=== PATIENT | male | born 1965 | race Caucasian/White ===

== ENCOUNTER 2017-08-29 04:22 | Inpatient (IN) | payer MEDICAID ==
[~2017-08-29] VITALS: Ht 172.7 cm; Wt 98.0 kg
[2017-08-29] MEDS ORDERED: ASPIRIN 325 MG TAB PO STA (06:07)
[2017-08-29] MEDS ORDERED: ONDANSETRON 4 MG INJ IV STA (06:27)
[2017-08-29] MEDS ORDERED: morphine 4 MG/ML VIAL IV STA (06:27)
[2017-08-29] MEDS ORDERED: NITROGLYCERIN 2% 1 GM OINT PKT TD STA (06:27)
--- NOTE | 2017-08-29 06:44 | ERD ---
ER Documentation Chief Complaint Chief Complaint substernal CP x 45 mins, choking him in the throat, hx cardiac stents HPI This a 52-year-old male with a history of cardiac stents placement 3 years ago, diabetes, high cholesterol, hypertension. The patient developed substernal chest pressure at 4 AM today with radiation to his neck and arms with tingling to his neck and arms as well. Nodes sweaty but was short of breath. Pain is moderate to severe in exactly like his prior chest pain when he had a stent placed 3 years ago at [facility]. The patient says his chest pressure is almost gone at this point. Patient does not have typical angina on a regular basis ROS All systems reviewed and are negative except as per history of present illness. Medications Home Meds No Active Prescriptions or Reported Meds Allergies Allergies: Coded Allergies: No Known Allergy (Unverified , 08/29/17) FmHx Family History: No coronary disease Physical Exam Vitals Vital Signs Date Time Temp Pulse Resp B/P Pulse Ox O2 Delivery O2 Flow Rate FiO2 08/29/17 06:40 Nasal Cannula 2 08/29/17 06:40 98.2 76 16 149/96 94 Room Air 08/29/17 04:30 97.9 93 20 174/88 97 Physical Exam Const: Well-developed, well-nourished Head: Atraumatic, normocephalic Eyes: Normal Conjunctiva, PERRLA, EOMI, normal sclera, no nystagmus ENT: Normal External Ears, Nose and Mouth, moist mucus membranes. Neck: Full range of motion. No meningismus, no lymphadenopathy. Resp: Clear to auscultation bilaterally, no wheezing, rhonchi, rales Cardio: Regular rate and rhythm, no murmurs, S1 S2 present Abd: Soft, non tender x 4, non distended. Normal bowel sounds, no guarding or rebound, no pulsitile abdominal masses or bruits Skin: No petechiae or rashes, no ecchymosis , no maculopapular rash Back: No midline or flank tenderness Ext: No cyanosis, or edema, FROM x 4, normal inspection, neurovascularly intact x 4 Neur: Awake and alert, STR 5/5 x 4, sensation intact x 4, no focal findings, cerebellum intact Psych: Normal Mood and Affect Result Diagram: 12/24/17 0605 12/24/17 0605 Results 24 hrs Laboratory Tests Test 08/29/17 06:05 08/29/17 07:40 White Blood Count 7.710^3/ul Red Blood Count 4.8710^6/ul Hemoglobin 15.6g/dl Hematocrit 44.8% Mean Corpuscular Volume 92.0fl Mean Corpuscular Hemoglobin 32.0pg Mean Corpuscular Hemoglobin Concent 34.8g/dl Red Cell Distribution Width 12.9% Platelet Count 63250^3/UL Mean Platelet Volume 9.6fl Neutrophils % 71.8% Lymphocytes % 20.9% Monocytes % 5.4% Eosinophils % 0.9% Basophils % 0.6% Nucleated Red Blood Cells % 0.0/100WBC Neutrophils # 5.510^3/ul Lymphocytes # 1.610^3/ul Monocytes # 0.410^3/ul Eosinophils # 0.110^3/ul Basophils # 0.110^3/ul Nucleated Red Blood Cells # 0.010^3/ul Sodium Level 135mmol/L Potassium Level 4.6mmol/L Chloride Level 99mmol/L Carbon Dioxide Level 22mmol/L Anion Gap 19 Blood Urea Nitrogen 11mg/dl Creatinine 0.72mg/dl Glucose Level 158mg/dl Calcium Level 9.7mg/dl Troponin I 0.015ng/ml B-Type Natriuretic Peptide 14PG/ML Prothrombin Time 11.4Sec Prothrombin Time Ratio 0.9 INR International Normalized Ratio 0.82 Activated Partial Thromboplast Time 25.1Sec Current Medications Medications (Trade) Dose Ordered Sig/Frank Route PRN Reason Start Time Stop Time Status Last Admin Dose Admin Aspirin (Aspirin) 325 mg ONCE STAT PO 08/29/17 06:07 08/29/17 06:08 DC 08/29/17 06:54 Nitroglycerin (Nitroglycerin 2% Oint) 1 inch ONCE STAT TD 08/29/17 06:27 08/29/17 06:29 DC 08/29/17 07:00 Morphine Sulfate (morphine) 4 mg ONCE STAT IV 08/29/17 06:27 08/29/17 06:29 DC 08/29/17 06:58 Ondansetron HCl (Zofran Inj) 4 mg ONCE STAT IV 08/29/17 06:27 08/29/17 06:29 DC 08/29/17 06:58 Procedures/MDM EKG: Rate/Rhythm: Normal Sinus Rhythm,NL intervals QRS, ST, QT: NORMAL PA, QRS, QT] Impression: NORMAL EKG PROCEDURE: XR Chest. CLINICAL INDICATION: Chest pain. TECHNIQUE: Single frontal view of the chest was obtained. COMPARISON: None FINDINGS: The soft tissues are generous with monitoring electrodes project across the chest. There is a deformity of the mid left clavicle which could be the result of an old fracture deformity. No acute bony fracture is identified. The heart is at transverse configuration from a suboptimal inspiration. Is upper limits of normal for size. The cardiomediastinal silhouette and hilar structures are normal. The pulmonary vasculature is normal. There is a left-sided aorta. The lungs are clear. The costophrenic angles are normal. IMPRESSION: 1. Normal chest x-ray allowing for a poor inspiratory effort. RPTAT:AAJJ Physician Ken Date Time Electronically viewed and signed by Physician Ken on 08/29/2017 07:33 JM/ CC: CORWIN CORONADO DO Patient's symptoms are concerning for cardiac cause will require inpatient workup and continuous monitoring. Further w/u for ischemia, arrhythmia, PE or dissection will be deferred to the inpatient team. Accepting Care Team: Current data and ongoing care discussed. Time: Time of admission Primary Provider: [XOXOXO] Consulting: [XOXOXO] Outstanding Data: none Departure Diagnosis: Primary Impression: Chest pain Chest pain type: precordial pain Qualified Code: R07.2 - Precordial pain Condition: Stable CASTILLO DONBrandon LADD Aug 29, 2017 06:44
[2017-08-29 06:53] LABS: BASOPHIL # 0.1 10^3/ul (0.0-0.1); BASOPHILS % 0.6 % (0.0-2.0); EOSINOPHILS # 0.1 10^3/ul (0.0-0.5); EOSINOPHILS % 0.9 % (0.0-7.0); HEMATOCRIT 44.8 % (42.0-52.0); HEMOGLOBIN 15.6 g/dl (14.0-18.0); LYMPHOCYTES # 1.6 10^3/ul (0.8-2.9); LYMPHOCYTES % 20.9 % (15.0-51.0); MEAN CORPUSCULAR HGB CONC 34.8 g/dl (32.0-37.0); MEAN PLATELET VOLUME 9.6 fl (7.4-10.4); MONOCYTE # 0.4 10^3/ul (0.3-0.9); MONOCYTES % 5.4 % (0.0-11.0); NEUTROPHIL # 5.5 10^3/ul (1.6-7.5); NEUTROPHILS % 71.8 % (39.0-77.0); PLATELET COUNT 265 10^3/UL (140-415); RED BLOOD COUNT 4.87 10^6/ul (4.70-6.10); RED CELL DISTRIBUTION WIDTH 12.9 % (11.5-14.5); WHITE BLOOD COUNT 7.7 10^3/ul (4.8-10.8)
[2017-08-29 07:17] LABS: CALCIUM 9.7 mg/dl (8.4-10.2); CREATININE 0.72 mg/dl (0.61-1.24); POTASSIUM 4.6 mmol/L (3.5-5.1)
[2017-08-29 07:30] LABS: TROPONIN-I 0.015 ng/ml (0.00-0.12)
--- NOTE | 2017-08-29 07:33 | RADRPT ---
PROCEDURE: XR Chest. CLINICAL INDICATION: Chest pain. TECHNIQUE: Single frontal view of the chest was obtained. COMPARISON: None FINDINGS: The soft tissues are generous with monitoring electrodes project across the chest. There is a defor mity of the mid left clavicle which could be the result of an old fracture deformity. No acute bony fracture is identified. The heart is at transverse configuration from a suboptimal inspiration. Is upper limits of normal for size. The cardiomediastinal silhouette and hilar structures are normal. T he pulmonary vasculature is normal. There is a left-sided aorta. The lungs are clear. The costophr enic angles are normal. IMPRESSION: 1. Normal chest x-ray allowing for a poor inspiratory effort. RPTAT:AAJJ Physician Ken Date Time Electronically viewed and signed by Physician Ken on 08/29/2017 07:33 TRES/
[2017-08-29 08:17] LABS: INR 0.82; PROTIME 11.4 Sec (11.9-14.9); PT RATIO 0.9
[2017-08-29 08:18] LABS: PARTIAL THROMBOPLASTIN TIME 25.1 Sec (25.0-35.0)
[2017-08-29] MEDS ORDERED: SOD CHLORIDE 0.9% 1,000 ML IV SCH (08:48)
[2017-08-29] MEDS ORDERED: ACETAMINOPHEN 325 MG TAB PO PRN ×2 (09:00→13:00)
[2017-08-29] MEDS ORDERED: ONDANSETRON 4 MG INJ IV PRN ×2 (09:00→13:00)
[2017-08-29 10:08] VITALS: TEMP 98.2
[2017-08-29] MEDS ORDERED: NITROGLYCERIN (SL) 0.4 MG TAB SL PRN (13:00)
[2017-08-29] MEDS ORDERED: HYDROCODONE/APAP (5/325) TAB PO PRN (13:00)
[2017-08-29] MEDS ORDERED: DOCUSATE SODIUM 100 MG CAP PO PRN (13:00)
[2017-08-29] MEDS ORDERED: ALBUTEROL/IPRATROPIUM (NEB) 3 ML AMP HHN PRN (13:00)
[2017-08-29] MEDS ORDERED: MAGNESIUM HYDROXIDE 30ML CUP PO PRN (13:00)
[2017-08-29] MEDS ORDERED: NA PHOSPHATE/BIPHOS 133 ML ENEMA PR PRN (13:00)
[2017-08-29] MEDS ORDERED: LORAZEPAM 2 MG INJ IV PRN (13:00)
[2017-08-29] MEDS: INSULIN ASPART [NOVOLOG] 3 ML PEN SC SCH ×3 (13:00→22:20)
[2017-08-29] MEDS ORDERED: hydrALAzine 20 MG INJ IV PRN (13:00)
[2017-08-29] MEDS ORDERED: NACL 0.9% 3 ML SYG IV SCH (13:00)
[2017-08-29] MEDS ORDERED: DEXTROSE 50% 50 ML SYRINGE IV PRN ×2 (13:30)
[2017-08-29] MEDS ORDERED: GLUCOSE GEL 15 GRAM TUBE BUCCAL PRN (13:30)
[2017-08-29] MEDS ORDERED: GLUCOSE GEL 15 GRAM TUBE PO PRN ×2 (13:30)
[2017-08-29] MEDS ORDERED: GLUCAGON 1 MG INJ IM PRN (13:30)
[2017-08-29] MEDS: NICOTINE (14 MG/24 HR) PATCH TRANSDERM SCH (13:48)
--- NOTE | 2017-08-29 13:48 | CONS ---
Date/Time of Note Date/Time of Note DATE: 08/29/17 TIME: 13:42 Assessment/Plan Assessment/Plan Chief Complaint/Hosp Course Chest pain syndrome rule out acute coronary syndrome History of coronary artery disease History of [place] History of PCI Hypertension currently well controlled dyslipidemia hyperglycemia consistent with diabetes Noncompliant with medication Smoker Recommendations: Patient will be placed on appropriate medical therapy including aspirin beta- william statins. Diabetic management as per internal medicine. Imdur will be added. Serial cardiac enzymes will be obtained to rule out myocardial infarction. Echo will be ordered. Importance of compliance with the medication emphasized with the patient and family. Further recommendations after the above information is available. Thank you for his referral. I will continue to follow along with you. PETE RAMEY MD [facility] Problems: Consultation Date/Type/Reason Admit Date/Time Date of Consultation: Aug 29, 2017 Type of Consultation: Cardiology Reason for Consultation Chest pain Referring Provider: URI GRUBER Hx of Present Illness Cardiology consultation Chief complaint chest discomfort throat discomfort. History of present illness: Thank you for his referral. History was obtained from the patient from discussion with his discussion with Dr. Gruber This is a pleasant 52-year-old gentleman with history of coronary artery disease status post UT a few years ago status post PCI/stent who presented to emergency room of complaint. Patient woke up this morning with severe sudden onset of chest and throat discomfort. Was pressure-like. It was moderate intensity. It lasted about 45 minutes and has resolved now. Patient is currently chest pain-free. He says that he is normally able to exercise with no rest pain or discomfort. Discussed with his . Patient has not been compliant with any of his medication. He has not been taking any of his medications including given his aspirin. He was seen recently by her primary care physician who prescribed aspirin and statin and fenofibrate and KATHERYN inhibitor. However he has not taken any of them. He continues to smoke as well. Past medical history: Coronary artery disease status post [place] status post PCI about 3 years ago. History of hypertension dyslipidemia Smoker Medication At Home none Social history patient actively smokes. He is . He works as a medical data entry clerk. Family history: Patient father also with heart attacks Review of systems he denies all except for above-mentioned Social History Smoking Status: Current every day smoker Exam/Review of Systems Vital Signs Vitals Vital Signs Date Time Temp Pulse Resp B/P Pulse Ox O2 Delivery O2 Flow Rate FiO2 08/29/17 12:27 79 14 118/78 98 Nasal Cannula 2.0 08/29/17 10:08 98.2 Exam General: no acute distress HEENT: NC/AT. pupils are equal. round. NECK: NO JVD. no stridor. CV: RRR. systolic murmur; no gallop or rubs. PULM: no wheezing or rhonchi. GI: SOFT, NT, ND, no rebound or guarding Extremity: trace B/L LE edema. no clubbing. neuro: awake and alert, OX3. Psych: calm and pleasant rectal: deferred EKG was personally reviewed: Normal sinus rhythm normal ECG Results Result Diagram: 08/29/1760408/29/17604 Results 24 hrs Laboratory Tests Test 08/29/17 06:00 08/29/17 06:05 08/29/17 07:40 Free Thyroxine 1.04 White Blood Count 7.7 Red Blood Count 4.87 Hemoglobin 15.6 Hematocrit 44.8 Mean Corpuscular Volume 92.0 Mean Corpuscular Hemoglobin 32.0 Mean Corpuscular Hemoglobin Concent 34.8 Red Cell Distribution Width 12.9 Platelet Count 265 Mean Platelet Volume 9.6 Neutrophils % 71.8 Lymphocytes % 20.9 Monocytes % 5.4 Eosinophils % 0.9 Basophils % 0.6 Nucleated Red Blood Cells % 0.0 Neutrophils # 5.5 Lymphocytes # 1.6 Monocytes # 0.4 Eosinophils # 0.1 Basophils # 0.1 Nucleated Red Blood Cells # 0.0 Sodium Level 135 Potassium Level 4.6 Chloride Level 99 Carbon Dioxide Level 22 Anion Gap 19 H Blood Urea Nitrogen 11 Creatinine 0.72 Glucose Level 158 Calcium Level 9.7 Troponin I 0.015 B-Type Natriuretic Peptide 14 Prothrombin Time 11.4 L Prothrombin Time Ratio 0.9 INR International Normalized Ratio 0.82 Activated Partial Thromboplast Time 25.1 Medications Medications Current Medications Sodium Chloride (NS) 1,000 ml @ 80 mls/hr [id number] IV Last administered on t 10:05; Admin Dose 80 MLS/HR; Start 08/29/17 at 08:48; Stop 08/29/17 at 21:17 Ondansetron HCl (Zofran Inj) 4 mg Q6H PRN IV NAUSEA AND/OR VOMITING; Start at 13:00 Acetaminophen (Tylenol Tab) 650 mg Q6H PRN PO PAIN LEVEL 1-3 OR FEVER; Start 08/29/17 at 13:00 Acetaminophen/ Hydrocodone Bitart ([place] (5/325)) 1 tab Q6H PRN PO MODERATE PAIN LEVEL 4-6; Start 08/29/17 at 13:00 Morphine Sulfate (morphine) 2 mg Q4H PRN IV SEVERE PAIN LEVEL 7-10; Start at 13:00 Docusate Sodium (Colace) 100 mg Q12H PRN PO CONSTIPATION; Start 08/29/17 at 13 :00 Magnesium Hydroxide (Milk Of Mag) 30 ml DAILY PRN PO CONSTIPATION; Start 08/29 at 13:00 Sodium Biphosphate/ Sodium Phosphate (Fleet Enema) 133 ml DAILY PRN [place] CONSTIPATION; Start 08/29/17 at 13:00 Heparin Sodium (Porcine) 5000 unit 5,000 unit Q12 SC ; Start 08/29/17 at 21:00 Sodium Chloride (1/2 NS) 1,000 ml @ 75 mls/hr [id number] IV ; Start 08/29/17 at 12:37 Lorazepam (Ativan) 0.5 mg Q6H PRN IV ANXIETY; Start 08/29/17 at 13:00 Hydralazine HCl (Apresoline) 10 mg Q6H PRN IV ELEVATED BLOOD PRESSURE; Start 08/29/17 at 13:00 Clonidine (Catapres) 0.1 mg Q6H PRN PO ELEVATED BLOOD PRESSURE; Start at 13:00 Nitroglycerin (Nitroglycerin (Sl Tab) 0.4 Mg) 1 tab Q5M PRN SL ANGINA; Start 08/29/17 at 13:00 Nicotine (Nicoderm 14 Mg/ 24hr) 1 patch DAILY@14 TRANSDERM ; Start 08/29/17 at 14:00 Diagnostic Test (Pha) (Accu-Chek) 1 ea 02 XX ; Start 08/30/17 at 02:00 Insulin Aspart (Novolog Insulin Pen) NOVOLOG *MILD* ALGORI... Q4 SC ; Start at 13:00 Miscellaneous Information 1 ea NOTE XX ; Start 08/29/17 at 13:30 Glucose (Glutose) 15 gm Q15M PRN PO DECREASED GLUCOSE; Start 08/29/17 at 13:30 Glucose (Glutose) 22.5 gm Q15M PRN PO DECREASED GLUCOSE; Start 08/29/17 at 13: 30 Dextrose (D50w Syringe) 25 ml Q15M PRN IV DECREASED GLUCOSE; Start 08/29/17 at 13:30 Dextrose (D50w Syringe) 50 ml Q15M PRN IV DECREASED GLUCOSE; Start 08/29/17 at 13:30 Glucagon (Glucagen) 1 mg Q15M PRN IM DECREASED GLUCOSE; Start 08/29/17 at 13: 30 Glucose (Glutose) 15 gm Q15M PRN BUCCAL DECREASED GLUCOSE; Start 08/29/17 at 13:30 Aspirin (Halfprin) 81 mg DAILY PO ; Start 08/30/17 at 09:00 Metoprolol Succinate (Toprol Xl) 25 mg QHS PO ; Start 08/29/17 at 21:00; Status UNV Atorvastatin Calcium (Lipitor) 40 mg QHS PO ; Start 08/29/17 at 21:00; Status UNV PETE RAMEY MD Aug 29, 2017 13:48
[2017-08-29 13:54] LABS: INR 0.85; PROTIME 11.7 Sec (11.9-14.9); PT RATIO 0.9
[2017-08-29 14:00] LABS: PARTIAL THROMBOPLASTIN TIME 25.2 Sec (25.0-35.0)
[2017-08-29 14:15] VITALS: BP 122/71; PULSE 68; RESP 18
[2017-08-29 14:16] LABS: CK-MB 2.36 ng/ml (0.0-2.4)
[2017-08-29 14:19] LABS: TROPONIN-I 0.134 ng/ml (0.00-0.12)
[2017-08-29] MEDS ORDERED: CLOPIDOGREL 75 MG TAB PO ONE (14:30)
[2017-08-29 15:38] VITALS: Ht 172.7 cm; Wt 98.0 kg
--- NOTE | 2017-08-29 15:43 | HP ---
DATE OF ADMISSION: 08/29/2017 CHIEF COMPLAINT: Chest pain. HISTORY OF PRESENT ILLNESS: A 52-year-old male, past medical history of myocardial infarction, coronary artery disease with stent placement 3 years ago at [facility], type 2 diabetes, high cholesterol, hypertension, smoker, who presented with chest pain symptoms. He described the pain occurring at 4 a.m. this morning, mild radiation to the jaw and left arm, substernal in nature. He did have some nausea yesterday and felt some stomach discomfort yesterday after eating some chicken enchiladas, but he described the pain this morning as somewhat different. No upper or lower GI bleeding. No diarrhea or constipation. No fevers or chills. No headaches or dizziness. No loss of consciousness. The patient last saw a heart doctor 1 year ago at [facility]. His last stress test he believes is about 2 years ago. He does not remember the results of that. PAST MEDICAL HISTORY: As above. ALLERGIES: NO KNOWN DRUG ALLERGIES. MEDICATIONS: Home medications unknown at this time. PAST SURGICAL HISTORY: Had kidney stone surgery in the past and also the stent placement in the past. SOCIAL HISTORY: He smokes half pack a day for the last 30 years. Occasional alcohol use. FAMILY HISTORY: No known coronary artery disease. PHYSICAL EXAMINATION: VITAL SIGNS: T-max 98.2, pulse 76 to 93, respirations 16 to 20, blood pressure 149 to 174 systolic over 96 to 88 diastolic, sating at 97 percent room air. GENERAL: Patient lying in bed, answers question appropriately. No acute distress. HEENT: Pupils equal, round, react to light. Extraocular muscles intact. NECK: Supple. No thyromegaly. LUNGS: Clear to auscultation bilaterally. CARDIOVASCULAR: S1, S2 heard. No rubs, gallops. ABDOMEN: Soft, nontender, nondistended. Normal bowel sounds. No rebound or guarding. MUSCULOSKELETAL: No lower extremity edema bilaterally. NEUROLOGIC: No focal deficits. LABORATORY DATA: CBC is completely normal. Basic metabolic panel is normal. Troponin is negative x1. Coags are normal. Chest x-ray showed normal chest radiograph. ASSESSMENT AND PLAN: A 52-year-old male coming in with history of smoking, prior myocardial infarction with stent placement, diabetes, hypertension, high cholesterol, presents with chest pain symptoms. 1. Chest pain. Again, admit patient to telemetry floor. Get a cardiology consult. Check TSH, A1c, lipid panel. Rule him out for acute coronary syndrome. Trend his troponins q.6 hours x2 more. Morphine, oxygen, nitroglycerin and aspirin, as well. Do 2D echocardiogram, as well. 2. High cholesterol. Check lipid panel. Consider starting statin. 3. Diabetes. Put him on sliding scale insulin. Check A1c. 4. Hypertension. He came in with mild hypertensive urgency. Blood pressure is improved. Hydralazine p.r.n. Follow cardiology recommendations. 5. Deep venous thrombosis prophylaxis. Heparin subcu. Dictated By: He Lerma MD /[email or web address]/anurag /Document#: [id number]
[2017-08-29] MEDS: SOD CHLORIDE 0.45% 1,000 ML IV SCH (16:11)
[2017-08-29] MEDS: ISOSORBIDE MONONITRATE(SR)30 MG TAB PO SCH (18:06)
[2017-08-29] MEDS: ENOXAPARIN 100 MG/ML SYG SC SCH (18:10)
[2017-08-29 19:47] LABS: CK-MB 3.63 ng/ml (0.0-2.4); TROPONIN-I 0.347 ng/ml (0.00-0.12)
[2017-08-29 20:00] VITALS: BP 111/61; RESP 20
[2017-08-29 20:05] VITALS: PULSE 80
[2017-08-29] MEDS: ATORVASTATIN 40 MG TAB PO SCH (22:23)
[2017-08-29] MEDS: HEPARIN 5,000 UNIT/0.5 ML VIAL SC SCH (22:24)
[2017-08-29] MEDS: METOPROLOL (XL) 25 MG TAB PO SCH (22:25)
[2017-08-30] VITALS (12 sets, daily range): BP systolic 105–130; BP diastolic 66–82; PULSE 63–78; RESP 18–20
[2017-08-30] MEDS: INSULIN ASPART [NOVOLOG] 3 ML PEN SC SCH (01:00)
[2017-08-30] MEDS: SOD CHLORIDE 0.45% 1,000 ML IV SCH (01:57)
[2017-08-30] MEDS: ACCU-CHEK XX SCH (02:00)
[2017-08-30] MEDS: ENOXAPARIN 100 MG/ML SYG SC SCH ×3 (02:31→21:13)
[2017-08-30 05:42] LABS: BASOPHILS % 0.5 % (0.0-2.0); EOSINOPHILS # 0.1 10^3/ul (0.0-0.5); EOSINOPHILS % 1.6 % (0.0-7.0); HEMATOCRIT 43.6 % (42.0-52.0); HEMOGLOBIN 14.9 g/dl (14.0-18.0); LYMPHOCYTES # 2.6 10^3/ul (0.8-2.9); LYMPHOCYTES % 30.7 % (15.0-51.0); MEAN CORPUSCULAR HEMOGLOBIN 32.4 pg (29.0-33.0); MEAN CORPUSCULAR HGB CONC 34.2 g/dl (32.0-37.0); MEAN CORPUSCULAR VOLUME 94.8 fl (82.0-101.0); MEAN PLATELET VOLUME 9.5 fl (7.4-10.4); MONOCYTE # 0.6 10^3/ul (0.3-0.9); MONOCYTES % 6.5 % (0.0-11.0); NEUTROPHIL # 5.1 10^3/ul (1.6-7.5); NEUTROPHILS % 60.2 % (39.0-77.0); PLATELET COUNT 254 10^3/UL (140-415); RED CELL DISTRIBUTION WIDTH 13.1 % (11.5-14.5); WHITE BLOOD COUNT 8.5 10^3/ul (4.8-10.8)
[2017-08-30 06:20] LABS: CALCIUM 8.8 mg/dl (8.4-10.2); CREATININE 0.9 mg/dl (0.61-1.24); MAGNESIUM 2.1 mg/dl (1.7-2.5); PHOSPHORUS 4.4 mg/dl (2.5-4.9); POTASSIUM 4.2 mmol/L (3.5-5.1)
[2017-08-30 06:29] LABS: CHOL/HDL RATIO 9.3 RATIO
[2017-08-30 07:00] LABS: THYROID STIMULATING HORMONE 3.18 MIU/L (0.465-4.680)
[2017-08-30] MEDS ORDERED: INSULIN ASPART [NOVOLOG] 3 ML PEN SC SCH (07:30)
[2017-08-30] MEDS: Insulin NOVOLOG SS MILD Algorithm (SS with meals and bedtime) SC SCH ×4 (08:49→22:38)
[2017-08-30] MEDS: HEPARIN 5,000 UNIT/0.5 ML VIAL SC SCH (08:50)
[2017-08-30] MEDS: ASPIRIN (EC) 81 MG TAB PO SCH (08:51)
[2017-08-30] MEDS: ISOSORBIDE MONONITRATE(SR)30 MG TAB PO SCH (08:52)
[2017-08-30] MEDS ORDERED: ASPIRIN (EC) 325 MG TAB PO SCH (09:00)
--- NOTE | 2017-08-30 13:05 | CONS ---
Date/Time of Note Date/Time of Note DATE: 08/30/17 TIME: 13:01 Consult Date/Type/Reason Admit Date/Time Aug 29, 2017 at 08:49 Initial Consult Date 08/29/17 Type of Consultation: Cardiology Ordering Provider: URI GRUBER Subjective CARDIOLOGY FOLLOW UP NOTE: S: D/w Staff and DR Kamaljit barbour was reviewed. pt remains in in NSR he denies any active chest pain or pressure to me now. O: General: no acute distress HEENT: NC/AT. pupils are equal. round. NECK: NO JVD. no stridor. CV: RRR. systolic murmur; no gallop or rubs. PULM: no wheezing or rhonchi. GI: SOFT, NT, ND, no rebound or guarding Extremity: trace B/L LE edema. no clubbing. neuro: awake and alert, OX3. Psych: calm and pleasant rectal: deferred EKG was personally reviewed: Normal sinus rhythm normal ECG Objective Vital Signs Date Time Temp Pulse Resp B/P Pulse Ox O2 Delivery O2 Flow Rate FiO2 08/30/17 12:13 97.5 75 20 113/67 98 08/29/17 17:12 Nasal Cannula 2.0 Intake and Output 08/29/17 08/29/17 08/30/17 15:00 23:00 07:00 Intake Total 150 ml 300 ml Output Total 1000 ml 800 ml Balance -1000 ml 150 ml -500 ml Results/Medications Result Diagram: 08/30/17 0501 08/30/17 0500 Results 24 hrs Laboratory Tests Test 08/29/17 15:21 08/29/17 17:24 08/29/17 18:50 08/29/17 22:19 Bedside Glucose 114 105 125 Creatine Kinase 108 Creatine Kinase Index 3.4 Creatinine Kinase MB (Mass) 3.63 H Troponin I 0.347 *H Test 08/30/17 05:00 08/30/17 05:01 08/30/17 08:45 08/30/17 12:25 Sodium Level 136 Potassium Level 4.2 Chloride Level 102 Carbon Dioxide Level 25 Anion Gap 13 Blood Urea Nitrogen 13 Creatinine 0.90 Glucose Level 144 Hemoglobin A1c 7.0 H Calcium Level 8.8 Phosphorus Level 4.4 Magnesium Level 2.1 Triglycerides Level Cholesterol Level 317 H LDL Cholesterol, Calculated HDL Cholesterol 34 Cholesterol/HDL Ratio 9.3 Thyroid Stimulating Hormone (TSH) 3.180 White Blood Count 8.5 Red Blood Count 4.60 L Hemoglobin 14.9 Hematocrit 43.6 Mean Corpuscular Volume 94.8 Mean Corpuscular Hemoglobin 32.4 Mean Corpuscular Hemoglobin Concent 34.2 Red Cell Distribution Width 13.1 Platelet Count 254 Mean Platelet Volume 9.5 Neutrophils % 60.2 Lymphocytes % 30.7 Monocytes % 6.5 Eosinophils % 1.6 Basophils % 0.5 Nucleated Red Blood Cells % 0.0 Neutrophils # 5.1 Lymphocytes # 2.6 Monocytes # 0.6 Eosinophils # 0.1 Basophils # 0.0 Nucleated Red Blood Cells # 0.0 Bedside Glucose 142 130 Medications Current Medications Ondansetron HCl (Zofran Inj) 4 mg Q6H PRN IV NAUSEA AND/OR VOMITING; Start at 13:00 Acetaminophen (Tylenol Tab) 650 mg Q6H PRN PO PAIN LEVEL 1-3 OR FEVER; Start 08/29/17 at 13:00 Acetaminophen/ Hydrocodone Bitart ([place] (5/325)) 1 tab Q6H PRN PO MODERATE PAIN LEVEL 4-6; Start 08/29/17 at 13:00 Morphine Sulfate (morphine) 2 mg Q4H PRN IV SEVERE PAIN LEVEL 7-10; Start at 13:00 Docusate Sodium (Colace) 100 mg Q12H PRN PO CONSTIPATION; Start 08/29/17 at 13 :00 Magnesium Hydroxide (Milk Of Mag) 30 ml DAILY PRN PO CONSTIPATION; Start 08/29 at 13:00 Sodium Biphosphate/ Sodium Phosphate (Fleet Enema) 133 ml DAILY PRN [place] CONSTIPATION; Start 08/29/17 at 13:00 Heparin Sodium (Porcine) (Heparin (5000 Units/0.5 ml)) 5,000 unit Q12 SC Last administered on 08/30/17t 08:50; Admin Dose 5,000 UNIT; Start 08/29/17 at 21: 00 Lorazepam (Ativan) 0.5 mg Q6H PRN IV ANXIETY; Start 08/29/17 at 13:00 Hydralazine HCl (Apresoline) 10 mg Q6H PRN IV ELEVATED BLOOD PRESSURE; Start 08/29/17 at 13:00 Clonidine (Catapres) 0.1 mg Q6H PRN PO ELEVATED BLOOD PRESSURE; Start at 13:00 Nitroglycerin (Nitroglycerin (Sl Tab) 0.4 Mg) 1 tab Q5M PRN SL ANGINA; Start 08/29/17 at 13:00 Nicotine (Nicoderm 14 Mg/ 24hr) 1 patch DAILY@14 TRANSDERM Last administered on 08/29/17 13:48; Admin Dose 1 PATCH; Start 08/29/17 at 14:00 Diagnostic Test (Pha) (Accu-Chek) 1 ea 02 XX ; Start 08/30/17 at 02:00 Miscellaneous Information 1 ea NOTE XX ; Start 08/29/17 at 13:30 Glucose (Glutose) 15 gm Q15M PRN PO DECREASED GLUCOSE; Start 08/29/17 at 13:30 Glucose (Glutose) 22.5 gm Q15M PRN PO DECREASED GLUCOSE; Start 08/29/17 at 13: 30 Dextrose (D50w Syringe) 25 ml Q15M PRN IV DECREASED GLUCOSE; Start 08/29/17 at 13:30 Dextrose (D50w Syringe) 50 ml Q15M PRN IV DECREASED GLUCOSE; Start 08/29/17 at 13:30 Glucagon (Glucagen) 1 mg Q15M PRN IM DECREASED GLUCOSE; Start 08/29/17 at 13: 30 Glucose (Glutose) 15 gm Q15M PRN BUCCAL DECREASED GLUCOSE; Start 08/29/17 at 13:30 Aspirin (Halfprin) 81 mg DAILY PO Last administered on 08/30/17 08:51; Admin Dose 81 MG; Start 08/30/17 at 09:00 Metoprolol Succinate (Toprol Xl) 25 mg QHS PO Last administered on 08/29/17 22:25; Admin Dose 25 MG; Start 08/29/17 at 21:00 Atorvastatin Calcium (Lipitor) 40 mg QHS PO Last administered on 08/29/17 22: 23; Admin Dose 40 MG; Start 08/29/17 at 21:00 Isosorbide Mononitrate (Imdur) 30 mg DAILY PO Last administered on 08/30/17 08:52; Admin Dose 30 MG; Start 08/29/17 at 14:00 Enoxaparin Sodium (Lovenox) 100 mg Q12 SC Last administered on 12/25/17at 08:50 ; Admin Dose 100 MG; Start 08/29/17 at 16:00 Diagnostic Test (Pha) (Accu-Chek) 1 ea 02 XX ; Start 08/30/17 at 02:30 Fenofibrate (Tricor) 145 mg DAILY PO ; Start 08/30/17 at 13:00 Assessment/Plan Chief Complaint/Hosp Course NSTEMI History of coronary artery disease History of [place] History of PCI Hypertension currently well controlled dyslipidemia hyperglycemia consistent/ diabetes Noncompliant with medication Smoker Recommendations: Patient will be continued on appropriate medical therapy including aspirin beta- william statins. Diabetic management as per internal medicine. Imdur will be added. Serial cardiac enzymes will be obtained to rule out myocardial infarction. Echo has been ordered. Importance of compliance with the medication emphasized with the patient and family. pt is promising to be compliant from now on. Risk-benefit alternatives of procedure discussed with the patient in detail. Risks including but not limited to risk of infection but bleeding complication bleeding complications [place] stroke arrhythmia at that renal failure etc. discussed with the patient in detail. Patient has consented to procedure. Patient will be scheduled for the procedure for tomorrow. Thank you for his referral. I will continue to follow along with you. PETE RAMEY MD [facility] Problems: PETE RAMEY MD Aug 30, 2017 13:05
--- NOTE | 2017-08-30 13:46 | PN ---
Date/Time of Note Date/Time of Note DATE: 08/30/17 TIME: 13:42 Assessment/Plan VTE Prophylaxis VTE Prophylaxis Intervention: SCD's Lines/Catheters IV Catheter Type (from Nrsg): Peripheral IV Urinary Cath still in place: No Assessment/Plan Assessment/Plan 52 yo M with CAD sp stent here with chest pain, found to have NSTEMI PLAN cardiac cath in AM with cardiology cont cardioprotective meds with asa, statin (fibrate added by cards for high TGs ), acei, bb, imdur added by cards DM2: SSI while in hospital. Will dc on metformin Tobacco abuse: NRT DVT prophx cardiac diet Subjective 24 Hr Interval Summary Free Text/Dictation Pt states chest pain has resolved Exam/Review of Systems Vital Signs Vitals Vital Signs Date Time Temp Pulse Resp B/P Pulse Ox O2 Delivery O2 Flow Rate FiO2 08/30/17 12:13 97.5 75 20 113/67 98 08/29/17 17:12 Nasal Cannula 2.0 Intake and Output 08/29/17 08/29/17 08/30/17 15:00 23:00 07:00 Intake Total 150 ml 300 ml Output Total 1000 ml 800 ml Balance -1000 ml 150 ml -500 ml Exam nad no mrg lungs clear abd soft no rashes a1c 7.0 TGs out of range Results Result Diagram: 08/30/17 0501 08/30/17 0500 Results 24 hrs Laboratory Tests Test 08/29/17 15:21 08/29/17 17:24 08/29/17 18:50 08/29/17 22:19 Bedside Glucose 114 105 125 Creatine Kinase 108 Creatine Kinase Index 3.4 Creatinine Kinase MB (Mass) 3.63 H Troponin I 0.347 *H Test 08/30/17 05:00 08/30/17 05:01 08/30/17 08:45 08/30/17 12:25 Sodium Level 136 Potassium Level 4.2 Chloride Level 102 Carbon Dioxide Level 25 Anion Gap 13 Blood Urea Nitrogen 13 Creatinine 0.90 Glucose Level 144 Hemoglobin A1c 7.0 H Calcium Level 8.8 Phosphorus Level 4.4 Magnesium Level 2.1 Triglycerides Level Cholesterol Level 317 H LDL Cholesterol, Calculated HDL Cholesterol 34 Cholesterol/HDL Ratio 9.3 Thyroid Stimulating Hormone (TSH) 3.180 White Blood Count 8.5 Red Blood Count 4.60 L Hemoglobin 14.9 Hematocrit 43.6 Mean Corpuscular Volume 94.8 Mean Corpuscular Hemoglobin 32.4 Mean Corpuscular Hemoglobin Concent 34.2 Red Cell Distribution Width 13.1 Platelet Count 254 Mean Platelet Volume 9.5 Neutrophils % 60.2 Lymphocytes % 30.7 Monocytes % 6.5 Eosinophils % 1.6 Basophils % 0.5 Nucleated Red Blood Cells % 0.0 Neutrophils # 5.1 Lymphocytes # 2.6 Monocytes # 0.6 Eosinophils # 0.1 Basophils # 0.0 Nucleated Red Blood Cells # 0.0 Bedside Glucose 142 130 Medications Medications Current Medications Ondansetron HCl (Zofran Inj) 4 mg Q6H PRN IV NAUSEA AND/OR VOMITING; Start at 13:00 Acetaminophen (Tylenol Tab) 650 mg Q6H PRN PO PAIN LEVEL 1-3 OR FEVER; Start 08/29/17 at 13:00 Acetaminophen/ Hydrocodone Bitart ([place] (5/325)) 1 tab Q6H PRN PO MODERATE PAIN LEVEL 4-6; Start 08/29/17 at 13:00 Morphine Sulfate (morphine) 2 mg Q4H PRN IV SEVERE PAIN LEVEL 7-10; Start at 13:00 Docusate Sodium (Colace) 100 mg Q12H PRN PO CONSTIPATION; Start 08/29/17 at 13 :00 Magnesium Hydroxide (Milk Of Mag) 30 ml DAILY PRN PO CONSTIPATION; Start 08/29 at 13:00 Sodium Biphosphate/ Sodium Phosphate (Fleet Enema) 133 ml DAILY PRN [place] CONSTIPATION; Start 08/29/17 at 13:00 Heparin Sodium (Porcine) (Heparin (5000 Units/0.5 ml)) 5,000 unit Q12 SC Last administered on 08/30/17t 08:50; Admin Dose 5,000 UNIT; Start 08/29/17 at 21: 00 Lorazepam (Ativan) 0.5 mg Q6H PRN IV ANXIETY; Start 08/29/17 at 13:00 Hydralazine HCl (Apresoline) 10 mg Q6H PRN IV ELEVATED BLOOD PRESSURE; Start 08/29/17 at 13:00 Clonidine (Catapres) 0.1 mg Q6H PRN PO ELEVATED BLOOD PRESSURE; Start at 13:00 Nitroglycerin (Nitroglycerin (Sl Tab) 0.4 Mg) 1 tab Q5M PRN SL ANGINA; Start 08/29/17 at 13:00 Nicotine (Nicoderm 14 Mg/ 24hr) 1 patch DAILY@14 TRANSDERM Last administered on 08/29/17 13:48; Admin Dose 1 PATCH; Start 08/29/17 at 14:00 Diagnostic Test (Pha) (Accu-Chek) 1 ea 02 XX ; Start 08/30/17 at 02:00 Miscellaneous Information 1 ea NOTE XX ; Start 08/29/17 at 13:30 Glucose (Glutose) 15 gm Q15M PRN PO DECREASED GLUCOSE; Start 08/29/17 at 13:30 Glucose (Glutose) 22.5 gm Q15M PRN PO DECREASED GLUCOSE; Start 08/29/17 at 13: 30 Dextrose (D50w Syringe) 25 ml Q15M PRN IV DECREASED GLUCOSE; Start 08/29/17 at 13:30 Dextrose (D50w Syringe) 50 ml Q15M PRN IV DECREASED GLUCOSE; Start 08/29/17 at 13:30 Glucagon (Glucagen) 1 mg Q15M PRN IM DECREASED GLUCOSE; Start 08/29/17 at 13: 30 Glucose (Glutose) 15 gm Q15M PRN BUCCAL DECREASED GLUCOSE; Start 08/29/17 at 13:30 Aspirin (Halfprin) 81 mg DAILY PO Last administered on 08/30/17 08:51; Admin Dose 81 MG; Start 08/30/17 at 09:00 Metoprolol Succinate (Toprol Xl) 25 mg QHS PO Last administered on 08/29/17 22:25; Admin Dose 25 MG; Start 08/29/17 at 21:00 Atorvastatin Calcium (Lipitor) 40 mg QHS PO Last administered on 08/29/17 22: 23; Admin Dose 40 MG; Start 08/29/17 at 21:00 Isosorbide Mononitrate (Imdur) 30 mg DAILY PO Last administered on 08/30/17 08:52; Admin Dose 30 MG; Start 08/29/17 at 14:00 Enoxaparin Sodium (Lovenox) 100 mg Q12 SC Last administered on 08/30/17 08:50 ; Admin Dose 100 MG; Start 08/29/17 at 16:00; Stop 08/30/17 at 23:00 Diagnostic Test (Pha) (Accu-Chek) 1 ea 02 XX ; Start 08/30/17 at 02:30 Fenofibrate 145 mg 145 mg DAILY PO ; Start 08/30/17 at 13:00 Sodium Chloride (NS) 1,000 ml @ 70 mls/hr [id number] IV ; Start 08/31/17 at 01:00 FRANCISCA DEL ANGEL MD Aug 30, 2017 13:46
[2017-08-30] MEDS: FENOFIBRATE 145 MG TAB PO SCH (14:13)
[2017-08-30] MEDS: NICOTINE (14 MG/24 HR) PATCH TRANSDERM SCH (15:42)
--- NOTE | 2017-08-30 17:22 | RADRPT ---
Echocardiogram Report Patient Name: KWABENA BECKHAM Gender: Male Date: 1965 Study Date: 30-Aug-2017 Geospatial Systems Integrator: JESSE Location: [id number] Ref. Physician: URI GRUBER Quality: Good Procedures: Transthoracic echocardiogram with complete 2D, M-Mode, and doppler examination. Indications: Chest Pain. 2D/M Mode Doppler Measurement Value Normal Ranges Measurement Value Normal Ranges AoR Diam MM 3.1 cm DEEPA Vmax 2.8 cm2 LA/Ao MM 1.2 AV Mean Anam 1.0 m/sec LA Dimen MM 3.6 cm AV Mean PG 4.0 mmHg LVIDd 2D 5.1 3.5 - 5.6 cm AV Peak Anam 1.3 m/sec LVIDs 2D 3.5 2.1 - 4.1 cm AV Peak PG 6.0 mmHg FS 2D 32.1 % AV VTI 25.3 cm LVPWd 2D 1.0 0.6 - 1.1 cm LVOT Peak Anam 1.1 m/sec IVSd 2D 1.0 0.6 - 1.1 cm LVOT Peak PG 5.0 mmHg IVS/LVPW 2D 1.0 MV E Peak Anam 0.7 m/sec EDV 2D 131.0 cm3 MV A Peak Anam 0.9 m/sec ESV 2D 41.1 cm3 MV E/A 0.7 EF 2D 60.0 50.0 - 65.0 % MV Decel Time 187 msec LVOT Diam 2.0 cm MV E/A 0.7 LVOT Area 3.1 cm2 TR Peak Anam 2.5 m/sec TR Peak PG 25.0 mmHg RVSP 35.0 mmHg RA Pressure 10.0 Findings Left Ventricle: Normal left ventricular systolic function. Normal left ventricular cavity size. Normal left ventricular wall thickness. Ejection fraction is visually estimated at 60 %. Tissue Doppler/Mitral Doppler indices are consistent with impaired relaxation (Stage I diastolic dysfunction). Right Ventricle: Normal right ventricular size. Normal right ventricular systolic function. Left Atrium: The left atrium is normal in size. Right Atrium: The right atrium is normal in size. Mitral Valve: Normal appearance of the mitral valve. Trace mitral regurgitation. Aortic Valve: Normal appearance of the aortic valve. No significant aortic stenosis or insufficiency. Tricuspid Valve: Normal appearance of the tricuspid valve. Normal right ventricular systolic pressure. Estimated peak PA systolic pressure 35 mmHg. There is mild tricuspid regurgitation. Pulmonic Valve: Normal pulmonic valve appearance. Pericardium: Normal pericardium with no significant pericardial effusion. Aorta: Normal aortic root. IVC: The IVC is not well visualized. Conclusions 1.Normal left ventricular systolic function. Normal left ventricular cavity size. Normal left ventricular wall thickness. Ejection fraction is visually estimated at 60 %. Tissue Doppler/Mitral Doppler indices are consistent with impaired relaxation (Stage I diastolic dysfunction). 2.Normal appearance of the mitral valve. Trace mitral regurgitation. 3.Normal appearance of the aortic valve. No significant aortic stenosis or insufficiency. 4.Normal appearance of the tricuspid valve. Normal right ventricular systolic pressure. Estimated peak PA systolic pressure 35 mmHg. There is mild tricuspid regurgitation. Electronically Signed By: Jeferson Luna 30-Aug-2017 17:21:18 -0800 Patient Name: KWABENA BECKHAM Study Date: 30-Aug-2017 [id number]
[2017-08-30] MEDS: ATORVASTATIN 40 MG TAB PO SCH (21:13)
[2017-08-30] MEDS: METOPROLOL (XL) 25 MG TAB PO SCH (21:14)
[2017-08-31] VITALS (22 sets, daily range): BP systolic 107–141; BP diastolic 73–91; PULSE 58–87; RESP 10–24
[2017-08-31] MEDS ORDERED: SOD CHLORIDE 0.9% 1,000 ML IV SCH ×2 (01:00→14:11)
[2017-08-31] MEDS: ACCUCHECK 2 AM XX SCH (01:57)
[2017-08-31] MEDS: ACCU-CHEK XX SCH (01:57)
[2017-08-31 07:34] LABS: BASOPHILS % 0.5 % (0.0-2.0); EOSINOPHILS # 0.1 10^3/ul (0.0-0.5); EOSINOPHILS % 1.9 % (0.0-7.0); HEMATOCRIT 44.2 % (42.0-52.0); HEMOGLOBIN 15.2 g/dl (14.0-18.0); LYMPHOCYTES # 2.3 10^3/ul (0.8-2.9); LYMPHOCYTES % 38.2 % (15.0-51.0); MEAN CORPUSCULAR HEMOGLOBIN 31.8 pg (29.0-33.0); MEAN CORPUSCULAR HGB CONC 34.4 g/dl (32.0-37.0); MEAN CORPUSCULAR VOLUME 92.5 fl (82.0-101.0); MEAN PLATELET VOLUME 9.6 fl (7.4-10.4); MONOCYTE # 0.5 10^3/ul (0.3-0.9); MONOCYTES % 7.6 % (0.0-11.0); NEUTROPHIL # 3.1 10^3/ul (1.6-7.5); NEUTROPHILS % 51.5 % (39.0-77.0); PLATELET COUNT 248 10^3/UL (140-415); RED BLOOD COUNT 4.78 10^6/ul (4.70-6.10); RED CELL DISTRIBUTION WIDTH 12.5 % (11.5-14.5); WHITE BLOOD COUNT 5.9 10^3/ul (4.8-10.8)
[2017-08-31 07:51] LABS: INR 0.85; PROTIME 11.7 Sec (11.9-14.9); PT RATIO 0.9
[2017-08-31] MEDS: Insulin NOVOLOG SS MILD Algorithm (SS with meals and bedtime) SC SCH ×4 (08:17→20:54)
[2017-08-31] MEDS: ASPIRIN (EC) 81 MG TAB PO SCH (08:51)
[2017-08-31] MEDS: ISOSORBIDE MONONITRATE(SR)30 MG TAB PO SCH (08:53)
[2017-08-31] MEDS: FENOFIBRATE 145 MG TAB PO SCH (08:53)
[2017-08-31] MEDS ORDERED: LISINOPRIL 5 MG TAB PO SCH (09:00)
--- NOTE | 2017-08-31 09:39 | PN ---
Date/Time of Note Date/Time of Note DATE: 08/31/17 TIME: 09:32 Assessment/Plan VTE Prophylaxis VTE Prophylaxis Intervention: SCD's Lines/Catheters IV Catheter Type (from [facility]): Peripheral IV Urinary Cath still in place: No Assessment/Plan Chief Complaint/Hosp Course 52-year-old male with a past medical history of hypertension, dyslipidemia, coronary artery disease with PCI, presented with chest pain and found to have NSTEMI. 1. NSTEMI. Status: Acute -Cardiac cath today with cardiology. -Continue optimal medical management with asa, statin, beta blockers, KATHERYN inhibitors, nitrates. 2. Dyslipidemia with hypertriglyceridemia. Status: Chronic. -Patient is on the right regimen with statin and fibrates. 3. Type 2 diabetes. Status: Chronic. Remarks: Well controlled with target glucose levels and A1c 7.0. -Continue with Accu-Cheks and insulin in-house. Hold off the metformin. 4. Essential hypertension. Status: Chronic. Remarks: Stable. -Continue current antihypertensive regimen. 5. Coronary artery disease with PCI. Status: Chronic. -Continue current medical management. 6. Nicotine abuse. Status: Chronic. -Cessation advised. 7. Noncompliance. Status: Chronic. -Patient was counseled on importance of complying with medications and abstain from substance. Patient was seen in collaboration with . Problems: Cont'd Hospitalization Reason: Patient needs cardiac catheterization. Subjective 24 Hr Interval Summary Free Text/Dictation Patient is not in any acute distress. He is scheduled for cardiac catheterization today. Exam/Review of Systems Vital Signs Vitals Vital Signs Date Time Temp Pulse Resp B/P Pulse Ox O2 Delivery O2 Flow Rate FiO2 08/31/17 08:43 98.4 66 17 125/75 93 08/30/17 20:00 Nasal Cannula 2.0 Intake and Output 08/30/17 08/30/17 08/31/17 15:00 23:00 07:00 Intake Total 300 ml 350 ml Output Total 300 ml 600 ml Balance 0 ml -250 ml Exam General: Well developed,adequately built, not in any acute distress . HEENT: Normocephalic, Atraumatic, No laceration or hematoma; Eyes: PEERL, Conjunctiva clear, Anicteric sclera Neck: Supple without any lymphadenopathy, nontender, no JVD, no carotid bruits, trachea midline, no thyromegaly Cardiac: S1, S2 auscultated, regular rhythm and rate, no mumurs or gallop Pulmonary: Normal respiratory effort. Chest clear to auscultation bilaterally, no adventitious breath sounds GI: Abdomen normal to inspection. Soft, non tender, non- distended, no masses, no rebound tenderness or guarding. Bowel sounds active on all four quadrants Genitourinary: Deferred Extremities: No cyanosis, clubbing, or edema. Pulses [2+] bilaterally. Full ROM on all four extremities. No focal weakness appreciated. Neurologic: Alert to person, place, time, and situation. Affect appropriate, intact sensation. Skin: Clean,dry, and intact. No ecchymosis, no rashes, or lesions Results Result Diagram: 08/31/17 0653 08/30/17 0500 Results 24 hrs Laboratory Tests Test 08/30/17 12:25 08/30/17 17:17 08/30/17 21:00 08/31/17 01:51 Bedside Glucose 130 130 194 133 Test 08/31/17 06:53 08/31/17 08:12 White Blood Count 5.9 # Red Blood Count 4.78 Hemoglobin 15.2 Hematocrit 44.2 Mean Corpuscular Volume 92.5 Mean Corpuscular Hemoglobin 31.8 Mean Corpuscular Hemoglobin Concent 34.4 Red Cell Distribution Width 12.5 Platelet Count 248 Mean Platelet Volume 9.6 Neutrophils % 51.5 Lymphocytes % 38.2 Monocytes % 7.6 Eosinophils % 1.9 Basophils % 0.5 Nucleated Red Blood Cells % 0.0 Neutrophils # 3.1 Lymphocytes # 2.3 Monocytes # 0.5 Eosinophils # 0.1 Basophils # 0.0 Nucleated Red Blood Cells # 0.0 Prothrombin Time 11.7 L Prothrombin Time Ratio 0.9 INR International Normalized Ratio 0.85 Bedside Glucose 145 Medications Medications Current Medications Ondansetron HCl (Zofran Inj) 4 mg Q6H PRN IV NAUSEA AND/OR VOMITING; Start at 13:00 Acetaminophen (Tylenol Tab) 650 mg Q6H PRN PO PAIN LEVEL 1-3 OR FEVER; Start 08/29/17 at 13:00 Acetaminophen/ Hydrocodone Bitart ([place] (5/325)) 1 tab Q6H PRN PO MODERATE PAIN LEVEL 4-6; Start 08/29/17 at 13:00 Morphine Sulfate (morphine) 2 mg Q4H PRN IV SEVERE PAIN LEVEL 7-10; Start at 13:00 Docusate Sodium (Colace) 100 mg Q12H PRN PO CONSTIPATION; Start 08/29/17 at 13 :00 Magnesium Hydroxide (Milk Of Mag) 30 ml DAILY PRN PO CONSTIPATION; Start 08/29 at 13:00 Hydralazine HCl (Apresoline) 10 mg Q6H PRN IV ELEVATED BLOOD PRESSURE; Start 08/29/17 at 13:00 Clonidine (Catapres) 0.1 mg Q6H PRN PO ELEVATED BLOOD PRESSURE; Start at 13:00 Nitroglycerin (Nitroglycerin (Sl Tab) 0.4 Mg) 1 tab Q5M PRN SL ANGINA; Start 08/29/17 at 13:00 Nicotine (Nicoderm 14 Mg/ 24hr) 1 patch DAILY@14 TRANSDERM Last administered on 08/30/17 15:42; Admin Dose 1 PATCH; Start 08/29/17 at 14:00 Diagnostic Test (Pha) (Accu-Chek) 1 ea 02 XX ; Start 08/30/17 at 02:00 Miscellaneous Information 1 ea NOTE XX ; Start 08/29/17 at 13:30 Glucose (Glutose) 15 gm Q15M PRN PO DECREASED GLUCOSE; Start 08/29/17 at 13:30 Glucose (Glutose) 22.5 gm Q15M PRN PO DECREASED GLUCOSE; Start 08/29/17 at 13: 30 Dextrose (D50w Syringe) 25 ml Q15M PRN IV DECREASED GLUCOSE; Start 08/29/17 at 13:30 Dextrose (D50w Syringe) 50 ml Q15M PRN IV DECREASED GLUCOSE; Start 08/29/17 at 13:30 Glucagon (Glucagen) 1 mg Q15M PRN IM DECREASED GLUCOSE; Start 08/29/17 at 13: 30 Glucose (Glutose) 15 gm Q15M PRN BUCCAL DECREASED GLUCOSE; Start 08/29/17 at 13:30 Aspirin (Halfprin) 81 mg DAILY PO Last administered on 08/31/17 08:51; Admin Dose 81 MG; Start 08/30/17 at 09:00 Metoprolol Succinate (Toprol Xl) 25 mg QHS PO Last administered on 08/30/17 21:14; Admin Dose 25 MG; Start 08/29/17 at 21:00 Atorvastatin Calcium (Lipitor) 40 mg QHS PO Last administered on 08/30/17 21: 13; Admin Dose 40 MG; Start 08/29/17 at 21:00 Isosorbide Mononitrate (Imdur) 30 mg DAILY PO Last administered on 08/30/17 08:52; Admin Dose 30 MG; Start 08/29/17 at 14:00 Diagnostic Test (Pha) (Accu-Chek) 1 ea 02 XX Last administered on 08/31/17 01 :57; Admin Dose 1 EA; Start 08/30/17 at 02:30 Fenofibrate 145 mg 145 mg DAILY PO Last administered on 08/30/17 14:13; Admin Dose 145 MG; Start 08/30/17 at 13:00 Sodium Chloride (NS) 1,000 ml @ 70 mls/hr [id number] IV Last administered on 01:34; Admin Dose 70 MLS/HR; Start 08/31/17 at 01:00 Lisinopril (Zestril) 2.5 mg DAILY PO ; Start 08/31/17 at 09:00 ESTER HUMPHREYS NP Aug 31, 2017 09:39
[2017-08-31 10:52] LABS: CK-MB 0.61 ng/ml (0.0-2.4); TROPONIN-I 0.148 ng/ml (0.00-0.12)
[2017-08-31 11:47] LABS: ALANINE AMINOTRANSFERASE 73 IU/L (13-69); ALBUMIN 3.7 g/dl (3.3-4.9); ALBUMIN/GLOBULIN RATIO 1.02; ALKALINE PHOSPHATASE 75 IU/L (42-121); ANION GAP 12 (8-16); ASPARTATE AMINO TRANSFERASE 35 IU/L (15-46); BILIRUBIN,INDIRECT 0.3 mg/dl (0-1.1); BILIRUBIN,TOTAL 0.3 mg/dl (0.2-1.3); BLOOD UREA NITROGEN 11 mg/dl (7-20); CALCIUM 9.3 mg/dl (8.4-10.2); CARBON DIOXIDE 28 mmol/L (21-31); CHLORIDE 102 mmol/L (97-110); CHOL/HDL RATIO 9.4 RATIO; CHOLESTEROL 302 mg/dl (100-200); CREATININE 0.89 mg/dl (0.61-1.24); GLUCOSE 135 mg/dl (70-220); HDL CHOLESTEROL 32 mg/dl (28-71); MAGNESIUM 2.2 mg/dl (1.7-2.5); POTASSIUM 4.2 mmol/L (3.5-5.1); SODIUM 138 mmol/L (135-144); TOTAL PROTEIN 7.3 g/dl (6.1-8.1)
[2017-08-31] MEDS ORDERED: HEPARIN 1000 UNITS/ML 10 ML INJ ONE (13:02)
[2017-08-31] MEDS ORDERED: LIDOCAINE 1% (MDV) 20 ML INJ ONE (13:02)
[2017-08-31] MEDS ORDERED: IODIXANOL LOCM 100 ML BTL ONE (13:02)
[2017-08-31] MEDS ORDERED: SOD CHLORIDE 0.9% 500 ML ONE (13:02)
[2017-08-31] MEDS ORDERED: MIDAZOLAM 1 MG/ML 2 ML INJ ONE (13:09)
[2017-08-31] MEDS ORDERED: FENTAnyl 50 MCG/ML VIAL ONE (13:09)
[2017-08-31] MEDS ORDERED: VERAPAMIL 5 MG INJ ONE (13:24)
[2017-08-31] MEDS ORDERED: NITROGLYCERIN (IC) 100 MCG/ML INJ ONE (13:24)
[2017-08-31] MEDS ORDERED: CLOPIDOGREL 300 MG TAB ONE (13:33)
[2017-08-31] MEDS ORDERED: BIVALIRUDIN 250MG /NS 50 ML 50 ML IVPB ONE (14:11)
--- NOTE | 2017-08-31 14:11 | OPR ---
Date/Time of Note Date/Time of Note DATE: 08/31/17 TIME: 14:05 Operative Report Procedure Date: Aug 31, 2017 Preoperative Diagnosis NSTEMI Postoperative Diagnosis NSTEMI Surgeon see signature line Shipping Support N/A Anesthesia Type: moderate sedation Estimated Blood Loss: minimal Transfusion none Specimen none Grafts/Implants none Complications none Procedure Description Broom Worker: Pete Luna MD Indication: NSTEMI Procure performed: #1 left heart catheterization and selective right and left coronary angiogram. #2 Right femoral angiogram and closure using Perclose device 3. Successful PTCA and stenting of left circumflex artery using a 3 x 16 mm Synergy drug-eluting stent 4. Moderate sedation for more than 60 minutes Findings: 1. Left main: is long and normal and birfurcates to LAD & LCX. 2. LAD: has 10% % stenosis at proximal LAD, and 20% % stenosis at mid LAD. Previous stent is patent. 3. Left circumflex artery: is large and dominant. it has 95-99% % stenosis proximally ---> 0% post PCI. Distal obtuse marginal has about 60% stenosis. 4. RCA: is non-dominant. it has no significant stenosis. 5. LV gram showed ejection fraction of about 50-55% with mild inferior hypokinesis. LVEDP is 11 with no significant gradient across the aortic valve. Procedure in detail: Written informed consent with obtained after risks benefits and alternatives discussed with the patient in detail. risks including but not limited to risk of infection vascular complications, bleeding complications, [place] stroke arrhythmia renal failure at even were discussed with the patient in detail. Patient was brought into the cardiac labor/excavator and placed in supine position. Right and left groin area was prepped and draped in regular sterile fashion and then he was in anesthetized using 1% lidocaine. Right femoral artery was cannulated and using modified seldinger technique a 6 Vietnamese sheath was placed in the right femoral artery. Right femoral angiogram was performed. JL4 catheter was advanced and engaged into the left main coronary artery and angiographic view was obtained. The JR4 catheter was advanced and engaged right coronary artery angiographic view was obtained. Pigtail was advanced to engage the left ventricle hemodynamics as recorded by pullback aortic pressure was measured once LV gram was performed.. At this time we decided to perform PCI of the left circumflex artery. A load of 3.5 guiding head was advanced to engage the left main coronary artery. BMW wire was used and advanced across the lesion and placed distal to the lesion. I used a 2.5 x 12 noncompliant balloon which was placed across the lesion and predilated the vessel. Then I used a 3 x 16 mm Synergy drug-eluting stent which was placed across the lesion and deployed at 16 cass. Finally a 3.5 x 8 mm noncompliant balloon was used and postdilated the stent and up to 18 cass. Final angiographic view was obtained which showed BENY-3 flow no evidence of dissection and no significant residual stenosis at the site of the stent. perclose was successfully deployed. Patient tolerated the procedure well with no complication. Patient to be transferred to recovery room in stable condition. contrast used: 85 cc Visipaque Conclusions: Successful PTCA stenting of the left circumflex artery from 95-99% stenosis to no significant residual stenosis using a 3 x 60 mm Synergy drug- eluting stent. Recommendations: Aggressive medical therapy. aspirin indefinitely dual antiplatlet therapy with aspirin and Plavix ICU care overnight. PETE LUNA MD [facility] PETE LUNA MD Aug 31, 2017 14:10
[2017-08-31] MEDS: morphine 2 MG INJ IV PRN ×2 (14:59→18:49)
[2017-08-31] MEDS ORDERED: CLOPIDOGREL 75 MG TAB PO SCH (15:00)
--- NOTE | 2017-08-31 17:44 | CONS ---
Date/Time of Note Date/Time of Note DATE: 08/31/17 TIME: 17:42 Consult Date/Type/Reason Admit Date/Time Aug 31, 2017 at 15:01 Initial Consult Date 08/29/17 Type of Consultation: Cardiology Ordering Provider: URI GRUBER Subjective CARDIOLOGY FOLLOW UP NOTE: S: D/w Staff [facility] was reviewed. pt remains in in NSR he denies any active chest pain or pressure to me now. O: General: no acute distress HEENT: NC/AT. pupils are equal. round. NECK: NO JVD. no stridor. CV: RRR. systolic murmur; no gallop or rubs. PULM: no wheezing or rhonchi. GI: SOFT, NT, ND, no rebound or guarding Extremity: trace B/L LE edema. no clubbing. neuro: awake and alert, OX3. Psych: calm and pleasant rectal: deferred EKG was personally reviewed: Normal sinus rhythm normal ECG Objective Vital Signs Date Time Temp Pulse Resp B/P Pulse Ox O2 Delivery O2 Flow Rate FiO2 08/31/17 16:54 60 16 125/87 95 Nasal Cannula 2.0 08/31/17 14:34 98.0 Intake and Output 08/30/17 08/30/17 08/31/17 15:00 23:00 07:00 Intake Total 300 ml 350 ml Output Total 300 ml 600 ml Balance 0 ml -250 ml Results/Medications Result Diagram: 08/31/17 0653 08/31/17 0653 Results 24 hrs Laboratory Tests Test 08/30/17 21:00 08/31/17 01:51 08/31/17 06:53 08/31/17 08:12 Bedside Glucose 194 133 145 White Blood Count 5.9 # Red Blood Count 4.78 Hemoglobin 15.2 Hematocrit 44.2 Mean Corpuscular Volume 92.5 Mean Corpuscular Hemoglobin 31.8 Mean Corpuscular Hemoglobin Concent 34.4 Red Cell Distribution Width 12.5 Platelet Count 248 Mean Platelet Volume 9.6 Neutrophils % 51.5 Lymphocytes % 38.2 Monocytes % 7.6 Eosinophils % 1.9 Basophils % 0.5 Nucleated Red Blood Cells % 0.0 Neutrophils # 3.1 Lymphocytes # 2.3 Monocytes # 0.5 Eosinophils # 0.1 Basophils # 0.0 Nucleated Red Blood Cells # 0.0 Prothrombin Time 11.7 L Prothrombin Time Ratio 0.9 INR International Normalized Ratio 0.85 Sodium Level 138 Potassium Level 4.2 Chloride Level 102 Carbon Dioxide Level 28 Anion Gap 12 Blood Urea Nitrogen 11 Creatinine 0.89 Glucose Level 135 Calcium Level 9.3 Magnesium Level 2.2 Total Bilirubin 0.3 Direct Bilirubin 0.00 Indirect Bilirubin 0.3 Aspartate Amino Transf (AST/SGOT) 35 Alanine Aminotransferase (ALT/SGPT) 73 H Alkaline Phosphatase 75 Creatine Kinase 50 Creatine Kinase Index 1.2 Creatinine Kinase MB (Mass) 0.61 Troponin I 0.148 *H Total Protein 7.3 Albumin 3.7 Globulin 3.60 H Albumin/Globulin Ratio 1.02 Triglycerides Level Cholesterol Level 302 H LDL Cholesterol, Calculated HDL Cholesterol 32 Cholesterol/HDL Ratio 9.4 Test 08/31/17 12:15 08/31/17 14:40 Bedside Glucose 130 101 Medications Current Medications Ondansetron HCl (Zofran Inj) 4 mg Q6H PRN IV NAUSEA AND/OR VOMITING; Start at 13:00 Acetaminophen (Tylenol Tab) 650 mg Q6H PRN PO PAIN LEVEL 1-3 OR FEVER; Start 08/29/17 at 13:00 Acetaminophen/ Hydrocodone Bitart ([place] (5/325)) 1 tab Q6H PRN PO MODERATE PAIN LEVEL 4-6; Start 08/29/17 at 13:00 Morphine Sulfate (morphine) 2 mg Q4H PRN IV SEVERE PAIN LEVEL 7-10 Last administered on 08/31/17t 14:59; Admin Dose 2 MG; Start 08/29/17 at 13:00 Docusate Sodium (Colace) 100 mg Q12H PRN PO CONSTIPATION; Start 08/29/17 at 13 :00 Magnesium Hydroxide (Milk Of Mag) 30 ml DAILY PRN PO CONSTIPATION; Start 08/29 at 13:00 Hydralazine HCl (Apresoline) 10 mg Q6H PRN IV ELEVATED BLOOD PRESSURE; Start 08/29/17 at 13:00 Clonidine (Catapres) 0.1 mg Q6H PRN PO ELEVATED BLOOD PRESSURE; Start at 13:00 Nitroglycerin (Nitroglycerin (Sl Tab) 0.4 Mg) 1 tab Q5M PRN SL ANGINA; Start 08/29/17 at 13:00 Nicotine (Nicoderm 14 Mg/ 24hr) 1 patch DAILY@14 TRANSDERM Last administered on 08/30/17 15:42; Admin Dose 1 PATCH; Start 08/29/17 at 14:00 Miscellaneous Information 1 ea NOTE XX ; Start 08/29/17 at 13:30 Glucose (Glutose) 15 gm Q15M PRN PO DECREASED GLUCOSE; Start 08/29/17 at 13:30 Glucose (Glutose) 22.5 gm Q15M PRN PO DECREASED GLUCOSE; Start 08/29/17 at 13: 30 Dextrose (D50w Syringe) 25 ml Q15M PRN IV DECREASED GLUCOSE; Start 08/29/17 at 13:30 Dextrose (D50w Syringe) 50 ml Q15M PRN IV DECREASED GLUCOSE; Start 08/29/17 at 13:30 Glucagon (Glucagen) 1 mg Q15M PRN IM DECREASED GLUCOSE; Start 08/29/17 at 13: 30 Glucose (Glutose) 15 gm Q15M PRN BUCCAL DECREASED GLUCOSE; Start 08/29/17 at 13:30 Aspirin (Halfprin) 81 mg DAILY PO Last administered on 08/31/17 08:51; Admin Dose 81 MG; Start 08/30/17 at 09:00 Metoprolol Succinate (Toprol Xl) 25 mg QHS PO Last administered on 08/30/17 21:14; Admin Dose 25 MG; Start 08/29/17 at 21:00 Atorvastatin Calcium (Lipitor) 40 mg QHS PO Last administered on 08/30/17 21: 13; Admin Dose 40 MG; Start 08/29/17 at 21:00 Isosorbide Mononitrate (Imdur) 30 mg DAILY PO Last administered on 08/30/17 08:52; Admin Dose 30 MG; Start 08/29/17 at 14:00 Diagnostic Test (Pha) (Accu-Chek) 1 ea 02 XX Last administered on 08/31/17 01 :57; Admin Dose 1 EA; Start 08/30/17 at 02:30 Fenofibrate 145 mg 145 mg DAILY PO Last administered on 08/30/17 14:13; Admin Dose 145 MG; Start 08/30/17 at 13:00 Sodium Chloride (NS) 1,000 ml @ 75 mls/hr [id number] IV Last administered on 14:59; Admin Dose 75 MLS/HR; Start 08/31/17 at 14:11; Stop 09/01/17 at 03:30 Clopidogrel Bisulfate (plaVIX) 75 mg DAILY PO ; Start 09/01/17 at 09:00 Assessment/Plan Chief Complaint/Hosp Course NSTEMI; s/p PCI LCX History of coronary artery disease History of MS History of PCI Hypertension currently well controlled dyslipidemia hyperglycemia consistent/ diabetes Noncompliant with medication Smoker Recommendations: Patient will be continued on appropriate medical therapy including aspirin plavix beta-william statins. Diabetic management as per internal medicine. Imdur Thank you for his referral. I will continue to follow along with you. PETE RAMEY MD [facility] Problems: PETE RAMEY MD Aug 31, 2017 17:44
[2017-08-31] MEDS: ATORVASTATIN 40 MG TAB PO SCH (20:48)
[2017-08-31] MEDS: METOPROLOL (XL) 25 MG TAB PO SCH (20:49)
[2017-08-31] MEDS: NICOTINE (14 MG/24 HR) PATCH TRANSDERM SCH (23:00)
[2017-09-01] VITALS (11 sets, daily range): BP systolic 103–143; BP diastolic 54–93; PULSE 59–78; RESP 12–24
[2017-09-01] MEDS: ACCUCHECK 2 AM XX SCH (01:39)
[2017-09-01 06:05] LABS: BASOPHILS % 0.5 % (0.0-2.0); EOSINOPHILS # 0.1 10^3/ul (0.0-0.5); EOSINOPHILS % 1.5 % (0.0-7.0); HEMATOCRIT 43.1 % (42.0-52.0); HEMOGLOBIN 14.8 g/dl (14.0-18.0); LYMPHOCYTES # 1.8 10^3/ul (0.8-2.9); LYMPHOCYTES % 21.5 % (15.0-51.0); MEAN CORPUSCULAR HGB CONC 34.3 g/dl (32.0-37.0); MEAN CORPUSCULAR VOLUME 93.3 fl (82.0-101.0); MEAN PLATELET VOLUME 9.6 fl (7.4-10.4); MONOCYTE # 0.5 10^3/ul (0.3-0.9); MONOCYTES % 6.4 % (0.0-11.0); NEUTROPHIL # 5.7 10^3/ul (1.6-7.5); NEUTROPHILS % 69.6 % (39.0-77.0); PLATELET COUNT 249 10^3/UL (140-415); RED BLOOD COUNT 4.62 10^6/ul (4.70-6.10); RED CELL DISTRIBUTION WIDTH 12.9 % (11.5-14.5); WHITE BLOOD COUNT 8.1 10^3/ul (4.8-10.8)
[2017-09-01] MEDS: Insulin NOVOLOG SS MILD Algorithm (SS with meals and bedtime) SC SCH (06:20)
[2017-09-01 06:51] LABS: ALBUMIN 3.8 g/dl (3.3-4.9); ALBUMIN/GLOBULIN RATIO 1.18; BILIRUBIN,INDIRECT 0.3 mg/dl (0-1.1); BILIRUBIN,TOTAL 0.3 mg/dl (0.2-1.3); CALCIUM 8.9 mg/dl (8.4-10.2); CREATININE 0.97 mg/dl (0.61-1.24); MAGNESIUM 2.2 mg/dl (1.7-2.5); POTASSIUM 4.4 mmol/L (3.5-5.1)
[2017-09-01 07:01] LABS: CK-MB 0.28 ng/ml (0.0-2.4); TROPONIN-I 0.157 ng/ml (0.00-0.12)
--- NOTE | 2017-09-01 08:27 | CONS ---
Date/Time of Note Date/Time of Note DATE: 09/01/17 TIME: 08:26 Consult Date/Type/Reason Admit Date/Time Aug 31, 2017 at 15:01 Initial Consult Date 08/29/17 Type of Consultation: Cardiology Ordering Provider: URI GRUBER Subjective CARDIOLOGY FOLLOW UP NOTE: S: D/w Staff and angle was reviewed. pt remains in in NSR he denies any active chest pain or pressure to me now. No groin pain. O: General: no acute distress HEENT: NC/AT. pupils are equal. round. NECK: NO JVD. no stridor. CV: RRR. systolic murmur; no gallop or rubs. PULM: no wheezing or rhonchi. GI: SOFT, NT, ND, no rebound or guarding Extremity: trace B/L LE edema. no clubbing. neuro: awake and alert, OX3. Psych: calm and pleasant rectal: deferred Vascular: Right femoral no bleeding no hematoma no bruit. Nontender to palpation. Patient has been able to walk. EKG was personally reviewed: Normal sinus rhythm normal ECG Objective Vital Signs Date Time Temp Pulse Resp B/P Pulse Ox O2 Delivery O2 Flow Rate FiO2 09/01/17 07:00 59 19 112/54 97 Nasal Cannula 2.0 09/01/17 04:00 98.2 Intake and Output 08/31/17 08/31/17 09/01/17 15:00 23:00 07:00 Intake Total 1040 ml 400 ml Output Total 300 ml 600 ml Balance 740 ml -200 ml Results/Medications Result Diagram: 09/01/17 0445 09/01/17 0445 Results 24 hrs Laboratory Tests Test 08/31/17 12:15 08/31/17 14:40 08/31/17 20:53 09/01/17 01:38 Bedside Glucose 130 101 140 113 Test 09/01/17 04:45 09/01/17 06:19 White Blood Count 8.1 # Red Blood Count 4.62 L Hemoglobin 14.8 Hematocrit 43.1 Mean Corpuscular Volume 93.3 Mean Corpuscular Hemoglobin 32.0 Mean Corpuscular Hemoglobin Concent 34.3 Red Cell Distribution Width 12.9 Platelet Count 249 Mean Platelet Volume 9.6 Neutrophils % 69.6 Lymphocytes % 21.5 Monocytes % 6.4 Eosinophils % 1.5 Basophils % 0.5 Nucleated Red Blood Cells % 0.0 Neutrophils # 5.7 Lymphocytes # 1.8 Monocytes # 0.5 Eosinophils # 0.1 Basophils # 0.0 Nucleated Red Blood Cells # 0.0 Sodium Level 138 Potassium Level 4.4 Chloride Level 102 Carbon Dioxide Level 27 Anion Gap 13 Blood Urea Nitrogen 12 Creatinine 0.97 Glucose Level 113 Calcium Level 8.9 Magnesium Level 2.2 Total Bilirubin 0.3 Direct Bilirubin 0.00 Indirect Bilirubin 0.3 Aspartate Amino Transf (AST/SGOT) 118 #H Alanine Aminotransferase (ALT/SGPT) 133 H Alkaline Phosphatase 67 Creatine Kinase 46 Creatine Kinase Index 0.6 Creatinine Kinase MB (Mass) 0.28 Troponin I 0.157 *H Total Protein 7.0 Albumin 3.8 Globulin 3.20 Albumin/Globulin Ratio 1.18 Bedside Glucose 139 Medications Current Medications Ondansetron HCl (Zofran Inj) 4 mg Q6H PRN IV NAUSEA AND/OR VOMITING; Start at 13:00 Acetaminophen (Tylenol Tab) 650 mg Q6H PRN PO PAIN LEVEL 1-3 OR FEVER; Start 08/29/17 at 13:00 Acetaminophen/ Hydrocodone Bitart (Tiller (5/325)) 1 tab Q6H PRN PO MODERATE PAIN LEVEL 4-6; Start 08/29/17 at 13:00 Morphine Sulfate (morphine) 2 mg Q4H PRN IV SEVERE PAIN LEVEL 7-10 Last administered on 08/31/17t 18:49; Admin Dose 2 MG; Start 08/29/17 at 13:00 Docusate Sodium (Colace) 100 mg Q12H PRN PO CONSTIPATION; Start 08/29/17 at 13 :00 Magnesium Hydroxide (Milk Of Mag) 30 ml DAILY PRN PO CONSTIPATION; Start 08/29 at 13:00 Hydralazine HCl (Apresoline) 10 mg Q6H PRN IV ELEVATED BLOOD PRESSURE; Start 08/29/17 at 13:00 Clonidine (Catapres) 0.1 mg Q6H PRN PO ELEVATED BLOOD PRESSURE; Start at 13:00 Nitroglycerin (Nitroglycerin (Sl Tab) 0.4 Mg) 1 tab Q5M PRN SL ANGINA; Start 08/29/17 at 13:00 Nicotine (Nicoderm 14 Mg/ 24hr) 1 patch DAILY@14 TRANSDERM Last administered on 08/31/17 23:00; Admin Dose 1 PATCH; Start 08/29/17 at 14:00 Miscellaneous Information 1 ea NOTE XX ; Start 08/29/17 at 13:30 Glucose (Glutose) 15 gm Q15M PRN PO DECREASED GLUCOSE; Start 08/29/17 at 13:30 Glucose (Glutose) 22.5 gm Q15M PRN PO DECREASED GLUCOSE; Start 08/29/17 at 13: 30 Dextrose (D50w Syringe) 25 ml Q15M PRN IV DECREASED GLUCOSE; Start 08/29/17 at 13:30 Dextrose (D50w Syringe) 50 ml Q15M PRN IV DECREASED GLUCOSE; Start 08/29/17 at 13:30 Glucagon (Glucagen) 1 mg Q15M PRN IM DECREASED GLUCOSE; Start 08/29/17 at 13: 30 Glucose (Glutose) 15 gm Q15M PRN BUCCAL DECREASED GLUCOSE; Start 08/29/17 at 13:30 Aspirin (Halfprin) 81 mg DAILY PO Last administered on 08/31/17 08:51; Admin Dose 81 MG; Start 08/30/17 at 09:00 Metoprolol Succinate (Toprol Xl) 25 mg QHS PO Last administered on 08/31/17 20:49; Admin Dose 25 MG; Start 08/29/17 at 21:00 Atorvastatin Calcium (Lipitor) 40 mg QHS PO Last administered on 08/31/17 20: 48; Admin Dose 40 MG; Start 08/29/17 at 21:00 Isosorbide Mononitrate (Imdur) 30 mg DAILY PO Last administered on 08/30/17 08:52; Admin Dose 30 MG; Start 08/29/17 at 14:00 Diagnostic Test (Pha) (Accu-Chek) 1 ea 02 XX Last administered on 08/31/17 01 :57; Admin Dose 1 EA; Start 08/30/17 at 02:30 Fenofibrate (Tricor) 145 mg DAILY PO Last administered on 08/30/17 14:13; Admin Dose 145 MG; Start 08/30/17 at 13:00 Clopidogrel Bisulfate (plaVIX) 75 mg DAILY PO ; Start 09/01/17 at 09:00 Assessment/Plan Chief Complaint/Hosp Course NSTEMI; s/p PCI LCX History of coronary artery disease History of NM History of PCI Hypertension currently well controlled dyslipidemia hyperglycemia consistent/ diabetes Noncompliant with medication Smoker Recommendations: Patient will be continued on appropriate medical therapy including aspirin plavix beta-william statins Prescription for above medication plus fish oil was given to the patient to have it filled now. Diabetic management as per internal medicine. Nitroglycerin as needed. Okay to discharge from cardiac standpoint once patient feels in his prescription Thank you for his referral. I will continue to follow along with you. PETE RAMEY MD [facility] Problems: PETE RAMEY MD Sep 01, 2017 08:27
[2017-09-01] MEDS ORDERED: CLOPIDOGREL 75 MG TAB PO SCH (09:00)
--- NOTE | 2017-09-01 09:22 | PDOCDIS ---
Discharge Instructions CONDITION Patient Condition: Stable HOME CARE INSTRUCTIONS: Special Diet: 1800 calories/low-cholesterol, low-fat/2gm Na FOLLOW UP/APPOINTMENTS Follow-up Plan Follow-up with Dr. Luna in 2 weeks. [id number] [facility], [address] [place], [place] [address] Follow up with primary care physician in 1 week If you don't have one please let someone know, we can give you resources that may help you pick one. You may also call your insurance company to assign one to you. Review your medication list with your nurse before leaving and if you need new prescriptions please let your nurse know. I may have made changes to your home medications or given you new prescriptions, please let your primary doctor know as well. Stay compliant with your medications and report any side effects to your PCP or pharmacist. Return to the ER if you have any concerns and cannot reach your doctors or call your insurance company, they usually have a nurse that can help you. Call 911 or go to the nearest emergency room if experiencing loss of consciousness, dizziness, chest pain, shortness of breath, vomiting/abdominal pain, speech difficulties, motor weakness or any unusual symptoms. ESTER HUMPHREYS NP Sep 01, 2017 09:22
[2017-09-01] MEDS ORDERED: METF1000 PO (09:26)
[2017-09-01] MEDS ORDERED: CLOP75TA28 PO (09:26)
[2017-09-01] MEDS ORDERED: NITR0.4T32 SL (09:26)
[2017-09-01] MEDS ORDERED: ATOR40TA68 PO (09:26)
[2017-09-01] MEDS ORDERED: ASPI-664 PO (09:26)
[2017-09-01] MEDS ORDERED: METO-335 PO (09:26)
[2017-09-01] MEDS ORDERED: OMEG1CAP17 PO (09:26)
--- NOTE | 2017-09-01 09:32 | DS ---
Date/Time of Note Date/Time of Note DATE: 09/01/17 TIME: 09:30 Discharge Summary Admission/Discharge Info Admit Date/Time Aug 31, 2017 at 15:01 Discharge Date/Time Discharge Diagnosis 1. NSTEMI. s/p cardiac catheterization/PCI LCX 2. Dyslipidemia with hypertriglyceridemia. 3. Type 2 diabetes. 4. Essential hypertension. 5. Coronary artery disease with PCI. 6. Nicotine abuse. 7. Noncompliance. Patient Condition: Stable Consults , cardiology Procedures 08/29/2017. 2D echocardiogram. Conclusions 1. Normal left ventricular systolic function. Normal left ventricular cavity size. Normal left ventricular wall thickness. Ejection fraction is visually estimated at 60 %. Tissue Doppler/Mitral Doppler indices are consistent with impaired relaxation (Stage I diastolic dysfunction). 2. Normal appearance of the mitral valve. Trace mitral regurgitation. 3. Normal appearance of the aortic valve. No significant aortic stenosis or insufficiency. 4. Normal appearance of the tricuspid valve. Normal right ventricular systolic pressure. Estimated peak PA systolic pressure 35 mmHg. There is mild tricuspid regurgitation. 09/01/2017. Procure performed: #1 left heart catheterization and selective right and left coronary angiogram. #2 Right femoral angiogram and closure using Perclose device 3. Successful PTCA and stenting of left circumflex artery using a 3 x 16 mm Synergy drug-eluting stent 4. Moderate sedation for more than 60 minutes Findings: 1. Left main: is long and normal and birfurcates to LAD & LCX. 2. LAD: has 10% % stenosis at proximal LAD, and 20% % stenosis at mid LAD. Previous stent is patent. 3. Left circumflex artery: is large and dominant. it has 95-99% % stenosis proximally ---> 0% post PCI. Distal obtuse marginal has about 60% stenosis. 4. RCA: is non-dominant. it has no significant stenosis. 5. LV gram showed ejection fraction of about 50-55% with mild inferior hypokinesis. LVEDP is 11 with no significant gradient across the aortic valve. Hospital Course This is a 52-year-old male with a past medical history of hypertension, dyslipidemia, coronary artery disease with PCI, presented with chest pain and found to have NSTEMI. Patient had cardiology evaluation and was started on optimal medical management with asa, statin, beta blockers, KATHERYN inhibitors, nitrates. For diabetes, metformin was held and was treated with Accu-Cheks and sliding scale insulin. On 08/31/2017, patient had left heart catheterization and selective right and left coronary angiogram with successful PTCA and stenting of left circumflex artery using synergy drug-eluting stent. Patient tolerated procedure well and was taken to ICU for observation. He was then started on diet and ambulation. He was also counseled on cessation of nicotine abuse. There was no further chest pain. He was feeling back to his baseline. At this point, patient is medically stable for discharge with outpatient cardiology follow-up. He was recommended to continue aspirin, Plavix, metoprolol, statin, fish oil, and metformin on discharge. Patient was given prescription and instructed to refill his medications prior to get discharged due to his noncompliance. Disposition: Home. Approximately 60 minutes was spent in coordinating the discharge on this patient. Patient was seen in collaboration with . Home Meds Active Scripts Metformin Hcl* (Metformin Hcl*) 1,000 Mg Tablet, 1000 MG PO WITH BREAKFAST DINNE , #60 TAB FIRST DOSE TO BE TAKEN ON 09/03/2017 Prov:ESTER HUMPHREYS NP 09/01/17 Follow-up Plan Follow-up with Dr. Luna in 2 weeks. [id number] [facility], [address] [place] [address] Follow up with primary care physician in 1 week If you don't have one please let someone know, we can give you resources that may help you pick one. You may also call your insurance company to assign one to you. Review your medication list with your nurse before leaving and if you need new prescriptions please let your nurse know. I may have made changes to your home medications or given you new prescriptions, please let your primary doctor know as well. Stay compliant with your medications and report any side effects to your PCP or pharmacist. Return to the ER if you have any concerns and cannot reach your doctors or call your insurance company, they usually have a nurse that can help you. Call 911 or go to the nearest emergency room if experiencing loss of consciousness, dizziness, chest pain, shortness of breath, vomiting/abdominal pain, speech difficulties, motor weakness or any unusual symptoms. Primary Care Provider Care Physician No Primary Pending Labs Laboratory Tests Test 08/31/17 12:15 08/31/17 14:40 08/31/17 20:53 09/01/17 01:38 Bedside Glucose 130mg/dL (70-220) 101mg/dL (70-220) 140mg/dL (70-220) 113mg/dL (70-220) Test 09/01/17 04:45 09/01/17 06:19 White Blood Count 8.110^3/ul (4.8-10.8) Red Blood Count 4.6210^6/ul (4.70-6.10) Hemoglobin 14.8g/dl (14.0-18.0) Hematocrit 43.1% (42.0-52.0) Mean Corpuscular Volume 93.3fl (82.0-101.0) Mean Corpuscular Hemoglobin 32.0pg (29.0-33.0) Mean Corpuscular Hemoglobin Concent 34.3g/dl (32.0-37.0) Red Cell Distribution Width 12.9% (11.5-14.5) Platelet Count 61559^3/UL (140-415) Mean Platelet Volume 9.6fl (7.4-10.4) Neutrophils % 69.6% (39.0-77.0) Lymphocytes % 21.5% (15.0-51.0) Monocytes % 6.4% (0.0-11.0) Eosinophils % 1.5% (0.0-7.0) Basophils % 0.5% (0.0-2.0) Nucleated Red Blood Cells % 0.0/100WBC (0.0-0.0) Neutrophils # 5.710^3/ul (1.6-7.5) Lymphocytes # 1.810^3/ul (0.8-2.9) Monocytes # 0.510^3/ul (0.3-0.9) Eosinophils # 0.110^3/ul (0.0-0.5) Basophils # 0.010^3/ul (0.0-0.1) Nucleated Red Blood Cells # 0.010^3/ul (0.0-0.0) Sodium Level 138mmol/L (135-144) Potassium Level 4.4mmol/L (3.5-5.1) Chloride Level 102mmol/L (97-110) Carbon Dioxide Level 27mmol/L (21-31) Anion Gap 13 (8-16) Blood Urea Nitrogen 12mg/dl (7-20) Creatinine 0.97mg/dl (0.61-1.24) Glucose Level 113mg/dl (70-220) Calcium Level 8.9mg/dl (8.4-10.2) Magnesium Level 2.2mg/dl (1.7-2.5) Total Bilirubin 0.3mg/dl (0.2-1.3) Direct Bilirubin 0.00mg/dl (0.00-0.20) Indirect Bilirubin 0.3mg/dl (0-1.1) Aspartate Amino Transf (AST/SGOT) 118IU/L (15-46) Alanine Aminotransferase (ALT/SGPT) 133IU/L (13-69) Alkaline Phosphatase 67IU/L (42-121) Creatine Kinase 46IU/L (23-200) Creatine Kinase Index 0.6 Creatinine Kinase MB (Mass) 0.28ng/ml (0.0-2.4) Troponin I 0.157ng/ml (0.00-0.12) Total Protein 7.0g/dl (6.1-8.1) Albumin 3.8g/dl (3.3-4.9) Globulin 3.20g/dl (1.3-3.2) Albumin/Globulin Ratio 1.18 Bedside Glucose 139mg/dL (70-220) ESTER HUMPHREYS [employer] Sep 01, 2017 09:32
[2017-09-01] MEDS: ASPIRIN (EC) 81 MG TAB PO SCH (09:36)
[2017-09-01] MEDS: FENOFIBRATE 145 MG TAB PO SCH (09:36)
--- NOTE | 2017-09-03 16:51 | RADRPT ---
Vent Rate: 59 bpm RR Interval: 0 msec VT Interval: 116 msec QRS Duration: 88 msec QT Interval: 424 msec QTC Interval: 419 msec P-R-T [place]: 43 - 76 - 77 degrees Sinus bradycardia Otherwise normal ECG Electronically Signed By: Iggy Macario [phone]
== END 2017-09-01 11:00 | disposition home or self-care (01) | DRG 247 ==
LOC: E/R 04:22 → MS3 08:49 → MS4 17:00 → ICU 08-31 12:41 → OBSVTOIN 08-31 15:01 → ICU 08-31 19:44
PROVIDERS: ADMIT Hospitalist; ATTEND Hospitalist
PROC: B211YZZ Fluoroscopy of Multiple Coronary Arteries using Other Contrast (ICD-10-PCS; 2017-08-31)
PROC: B215YZZ Fluoroscopy of Left Heart using Other Contrast (ICD-10-PCS; 2017-08-31)
PROC: 027034Z Dilation of Coronary Artery, One Artery with Drug-eluting Intraluminal Device, Percutaneous Approach (ICD-10-PCS; principal; 2017-08-31 12:00)
PROC: 4A023N7 Measurement of Cardiac Sampling and Pressure, Left Heart, Percutaneous Approach (ICD-10-PCS; 2017-08-31 12:00)
DX: I21.4 Non-ST elevation (NSTEMI) myocardial infarction (principal); I10 Essential (primary) hypertension; E11.9 Type 2 diabetes mellitus without complications; I25.2 Old myocardial infarction; I25.10 Atherosclerotic heart disease of native coronary artery without angina pectoris; E78.5 Hyperlipidemia, unspecified; F17.201 Nicotine dependence, unspecified, in remission; Z91.14 Patient's other noncompliance with medication regimen; Z95.5 Presence of coronary angioplasty implant and graft
CPT/HCPCS: 36415; 71010; 80048; 80053; 80061; 82550; 82553; 82962; 83036; 83735; 83880; 84100; 84439; 84443; 84484; 85025; 85610; 85730; 87081; 92941; 93005; 93306; 93458; 96374; 96375; 99217; C1725; C1760; C1874; C1887; C1894; G0378; J0583; J1644; J1650; J1815; J2250; J2270; J2405; J3010; J7030; J7040; Q9967

== ENCOUNTER 2018-06-25 22:59 | Emergency (ER) | END 2018-06-26 02:25 | disposition home or self-care (01) ==

== ENCOUNTER 2018-06-29 10:57 | Emergency (ER) | END 2018-06-29 12:51 | disposition home or self-care (01) ==